=== PATIENT | male | born 1960 | race Caucasian/White ===

== ENCOUNTER 2019-08-26 14:00 | Outpatient (RCR) | payer OTHER, SELFPAY | END 2019-09-15 10:11 | disposition home or self-care (01) | LOC: PT.CARL 14:00 | PROVIDERS: Visit Provider Orthopaedic Surgery | DX: M75.02 Adhesive capsulitis of left shoulder (principal) | CPT/HCPCS: 97010; 97014; 97110; 97163; G0283 ==